=== PATIENT | male | born 2000 | race Caucasian/White ===

== ENCOUNTER 2022-01-14 13:20 | Emergency (ER) | payer BC ==
[2022-01-14] MEDS ORDERED: Morphine 4 MG/ML VIAL ONE (14:33)
[2022-01-14] MEDS ORDERED: Morphine 2 MG/ML VIAL ONE (14:33)
== END 2022-01-14 15:25 | disposition home or self-care (01) ==
LOC: ERS 13:20
DX: S43.005A Unspecified dislocation of left shoulder joint, initial encounter (principal); W06.XXXA Fall from bed, initial encounter
CPT/HCPCS: 96372; J2270